=== PATIENT | male | born 1970 | race Two or more races ===

== ENCOUNTER 2024-05-31 13:41 | Outpatient (AMB) | payer OTHER, SELFPAY ==
--- NOTE | 2024-05-31 14:32 | A.OFFVIS_ITS ---
Intake Visit Reasons: bilateral nephrolithiasis Intake Note: New Patient presents for initial visit for bilateral nephrolithiasis Urology Medications: none Blood Thinner: none Steam Trap Worker Required: No Accompanied by: Self / Same As Patient Allergies No Known Allergies Allergy (Verified 05/31/24 15:02) Medication List - Last Reconciled 05/31/24 by DAYANARA Chatterjee-FELICITAS amlodipine 10 mg PO DAILY buprenorphine-naloxone 8-2 mg (Suboxone) 1 film sublingual BID clonazepam 1 mg PO BID PRN divalproex 500 mg PO BID haloperidol 10 mg PO BEDTIME prazosin 5 mg PO BEDTIME HPI Comments Details: Amari is a 54-year-old male patient of Dr. Starks. He has a past medical history of nicotine dependence, PTSD, opioid dependence, obesity, nephrolithiasis, literally see problem, hypertension, hep C, depression, anxiety, and auditory hallucinations. He presents to the office today as a new patient for nephrolithiasis. In discussion with the patient today he reports previously following up with [facility] many years ago for his longstanding history of nephrolithiasis and has underwent lithotripsy x1 in the past. He reports having followed up with his PCP at which time a CT was ordered 03/22 reviewed records that no bilateral kidneys with no hydronephrosis. There is multifocal scarring of the left kidney partially in the upper pole and interpolar region. 3 cm cyst in the interpolar region of the left kidney. There are bilateral nonobstructing renal calculi. On the right there is a cluster of 4 calculi in the lower pole the largest measuring 3 mm on the left there is a 9 mm calculus in the lower pole with a few punctate calculi in the upper pole and a 2 mm calculus in the lower pole. No calculus along the course of either ureter. Mild bladder wall thickening. When asked he does continue to report bilateral flank pain left side greater than right. We discussed potential causes of nephrolithiasis as well as further interventions. He otherwise denies urinary urgency, urinary frequency, incontinence, nocturia, hematuria, dysuria, foul smelling urine, changes to urinary stream, flank pain, fever, and or chills. He is happy with his current voiding parameters. [facility] Medical History (Updated 05/31/24 @ 15:14 by ARTHUR Chatterjee) Tobacco use disorder PTSD (post-traumatic stress disorder) Opioid dependence Obesity Nephrolithiasis Literacy problem Hypertension Hepatitis C Depression with anxiety Auditory hallucinations Review of Systems Const All systems reviewed & are unremarkable except as noted in HPI and below Physical Exam Const General: cooperative, comfortable, no acute distress, well developed, alert and awake Orientation/consciousness: patient oriented x3 Limitations: no limitations HEENT Head: Yes normal to inspection, Yes normocephalic and Yes atraumatic Ears: hearing grossly normal bilaterally Eyes General: appearance normal, both eyes and all related structures Neck Neck: Yes normal visual inspection and Yes trachea midline Chest Chest palpation & inspection: normal inspection of the chest Resp Effort & Inspection: normal respiratory effort and able to speak in complete sentences Cardio Rate: regular rate GI Inspection: Yes normal to inspection General: Yes no CVA tenderness Back/Spine/Pelvis Back: no CVA tenderness Skin General skin exam: no rashes or lesions noted Neuro General: patient oriented x3 Extrem General: Yes normal to inspection Psych Appearance: grossly normal and well kempt Mental Status: mental status grossly normal Speech and movement: Normal speech and movement present and Clear speech present Affect: normal affect Attitude: cooperative Thought process: Normal thought process present Thought content: Normal thought content present Insight: Fair insight present (Psych) Judgement: Fair judgement present (Psych) Results AMB Urinalysis, Automated UA Leukoctes 125 Grace/uL Last Edit by Pete Johnson on 05/31/24 14:54 UA Nitrite Last Edit by Pete Johnson on 05/31/24 14:54 UA Urobilinogen 0.2 mg/dL Last Edit by Pete Johnson on 05/31/24 14:54 UA Protein 15 mg/dL Last Edit by Pete Johnson on 05/31/24 14:54 UA pH 6.0 Last Edit by Pete Johnson on 05/31/24 14:54 UA Blood 80 Herbert/uL Last Edit by Ptee Johnson on 05/31/24 14:54 UA Specific [place] 1.020 Last Edit by Pete Johnson on 05/31/24 14:54 UA Ketone Last Edit by Pete Johnson on 05/31/24 14:54 UA Bilirubin 0 mg/dL Last Edit by Pete Johnson on 05/31/24 14:54 UA Glucose 0 mg/dL Last Edit by Pete Lovedipesh on 05/31/24 14:54 Results Reviewed Results Reviewed: Laboratory Last Values Urine pH (Auto) 6.0 05/31/24 14:52 Specific [place] (Auto) 1.020 05/31/24 14:52 Urine Protein (Auto) 15 mg/dL 05/31/24 14:52 Glucose (UA)(Auto) 0 mg/dL 05/31/24 14:52 Urine Blood (Auto) 80 Herbert/uL 05/31/24 14:52 Urine Bilirubin (Auto) 0 mg/dL 05/31/24 14:52 Urine Urobilinogen (Auto) 0.2 mg/dL 05/31/24 14:52 Leukocyte Esterase (Auto) 125 Grace/uL 05/31/24 14:52 Assessment & Plan Assessment & Plan (1) Nephrolithiasis: Code(s): N20.0 - Calculus of kidney Category: Medical (2) Flank pain: Code(s): R10.9 - Unspecified abdominal pain Category: Medical Plan In office urinalysis results reviewed with the patient today; as noted above. Recent CT results were reviewed with the patient today; as noted above. We discussed further treatment options to include ureteroscopy verses ESWL. Will obtain KUB for further assessment evaluation. Patient currently denies any bothersome urinary issues. He reports be happy with current voiding parameters. Follow-up in 1-2 weeks with imaging to be completed prior; or sooner with any issues, concerns, and or questions. Orders: Orders AMB Urinalysis Automated Today Z13.9 - Encounter for screening, unspecified XR KUB Today N20.0 - Calculus of kidney Patient Instructions: The patient had an opportunity to ask questions regarding the treatment plan. All questions were answered. Physical exam, labs, and imaging were discussed and reviewed in detail. As well as risks, benefits, and discussion of treatment choices. No major barriers to understanding were identified. The patient expressed understanding and agreement with the above treatment plan. The patient was made aware they should contact our office by phone for worsening of their current condition, the appearance of new symptoms, or with any questions or concerns. Compliance is encouraged with any medications and follow up testing that is ordered. It is a privilege to be allowed the opportunity to participate in? your urological care.? Again, if you have any questions or concerns If you have any questions or concerns please do not hesitate to contact me. The office is [phone]. This note is constructed using voice recognition software. While every effort has been made to ensure accuracy crossing supervisor errors may have been included. Yours sincerely, GUNNER Chatterjee Coding Level of Care Code New Pt Level 3 (59551) Diagnoses Nephrolithiasis N20.0 Flank pain R10.9
== END 2024-05-31 15:03 | disposition home or self-care (01) ==
PROVIDERS: PCP Internal Medicine; Visit Provider Nurse Practitioner Family
DX: N20.0 Calculus of kidney (principal); R10.9 Unspecified abdominal pain; Z13.9 Encounter for screening, unspecified
CPT/HCPCS: 99203

== ENCOUNTER 2024-05-31 13:41 | Outpatient (REF) | payer OTHER, SELFPAY ==
--- NOTE | ~2024-05-31 | XR_ITS ---
CLINICAL HISTORY: N20.0 - Calculus of kidney Single view of the abdomen. COMPARISON: None FINDINGS: Cholecystectomy clips. Three calcifications overlie the inferior pole of the right renal shadow measuring 3 mm, 3 mm and 2 mm likely representing renal calculi. Majority of the right kidney is obscured by overlying bowel. Calcification overlying the midportion of the left kidney shadow measuring 6 mm. Normal bowel distention. No pneumoperitoneum identified. [id number] colonic stool burden most pronounced within the ascending colon. No fracture identified. Visualized portions of the lung bases were unremarkable. IMPRESSION: 1. Probable right renal calculi measuring 3 mm, 3 mm and 2 mm at the inferior pole of the right kidney. Recommend correlation with prior imaging if available. 2. Probable 6 mm left renal calculus in the midportion. 3. Nonobstructive bowel gas pattern. This document has been electronically signed by: Fermin Duffy MD on 05/31/2024 16:33:21
== END 2024-05-31 13:42 | disposition home or self-care (01) ==
LOC: HO.XRAY 13:41
PROVIDERS: PCP Internal Medicine; Visit Provider Nurse Practitioner Family
DX: N20.0 Calculus of kidney (principal); R10.9 Unspecified abdominal pain
CPT/HCPCS: 74018; 81003; 99202

== ENCOUNTER 2024-06-04 09:32 | Outpatient (AMB) | payer OTHER, SELFPAY ==
--- NOTE | 2024-06-04 09:36 | A.OFFVIS_ITS ---
Intake Visit Reasons: Followup KUB Intake Note: Patient presents today for follow up on bilateral nephrolithiasis and KUB X-ray results Imaging completed: 05/31/24 Urology Medications: none Blood Thinner: none Leasing Associate Required: No Accompanied by: Self / Same As Patient Allergies No Known Allergies Allergy (Verified 06/04/24 12:03) Medication List - Last Reconciled 06/04/24 by GUNNER Chatterjee amlodipine 10 mg PO DAILY buprenorphine-naloxone 8-2 mg (Suboxone) 1 film sublingual BID clonazepam 1 mg PO BID PRN divalproex 500 mg PO BID haloperidol 10 mg PO BEDTIME prazosin 5 mg PO BEDTIME HPI Comments Details: Amari is a 54-year-old male patient of Dr. Starks. He has a past medical history of nicotine dependence, PTSD, opioid dependence, obesity, nephrolithiasis, literally see problem, hypertension, hep C, depression, anxiety, and auditory hallucinations. He presents to the office today for follow-up of his nephrolithiasis. Of note, patient was seen last week as a new patient for nephrolithiasis at which time a KUB was ordered for further assessment evaluation. These results were reviewed with the patient today. KUB 06/23 Probable right renal calculi measuring 3 mm, 3 mm, and 2 mm at the inferior pole of the right kidney. 6 mm left renal calculus in the midportion. He continues to report ongoing bilateral flank pain left side greater than right. He does have a previous history of nephrolithiasis and has underwent previous surgical intervention with lithotripsy in the past. Previous CT 03/22 notes bilateral kidneys with no hydronephrosis. There is multifocal scarring of the left kidney partially in the upper pole and interpolar region. 3 cm cyst in the interpolar region of the left kidney. There are bilateral nonobstructing renal calculi. On the right there is a cluster of 4 calculi in the lower pole the largest measuring 3 mm on the left there is a 9 mm calculus in the lower pole with a few punctate calculi in the upper pole and a 2 mm calculus in the lower pole. No calculus along the course of either ureter. Mild bladder wall thickening. We discussed potential causes of nephrolithiasis as well as further interventions. He otherwise denies urinary urgency, urinary frequency, incontinence, nocturia, hematuria, dysuria, foul smelling urine, changes to urinary stream, fever, and or chills. In office urinalysis results reviewed with the patient today 3+ leukocytes and 2+ microscopic blood. When asked he reports be happy with current voiding parameters. He otherwise offers no other issues or concerns at this time. [facility] Medical History Tobacco use disorder PTSD (post-traumatic stress disorder) Opioid dependence Obesity Nephrolithiasis Literacy problem Hypertension Hepatitis C Depression with anxiety Auditory hallucinations Review of Systems Const All systems reviewed & are unremarkable except as noted in HPI and below Physical Exam Const General: cooperative, healthy appearing, comfortable, no acute distress, well developed, alert and awake Orientation/consciousness: patient oriented x3 Limitations: no limitations HEENT Head: Yes normal to inspection, Yes normocephalic and Yes atraumatic Ears: hearing grossly normal bilaterally Eyes General: appearance normal, both eyes and all related structures Neck Neck: Yes normal visual inspection and Yes trachea midline Chest Chest palpation & inspection: normal inspection of the chest Resp Effort & Inspection: normal respiratory effort and able to speak in complete sentences Cardio Rate: regular rate GI Inspection: Yes normal to inspection General: Yes no CVA tenderness Back/Spine/Pelvis Back: no CVA tenderness Skin General skin exam: no rashes or lesions noted Neuro General: patient oriented x3 Extrem General: Yes normal to inspection Psych Appearance: grossly normal and well kempt Mental Status: mental status grossly normal Speech and movement: Normal speech and movement present and Clear speech present Affect: normal affect Attitude: cooperative Thought process: Normal thought process present Thought content: Normal thought content present Insight: Fair insight present (Psych) Judgement: Fair judgement present (Psych) Results AMB Urinalysis, Automated UA Leukoctes 500 Grace/uL Last Edit by Pete Johnson on 06/04/24 11:07 UA Nitrite Last Edit by Pete Johnson on 06/04/24 11:07 UA Urobilinogen 0.2 mg/dL Last Edit by Pete Johnson on 06/04/24 11:07 UA Protein 15 mg/dL Last Edit by Pete Johnson on 06/04/24 11:07 UA pH 6.0 Last Edit by Pete Johnson on 06/04/24 11:07 UA Blood 80 Herbert/uL Last Edit by Pete Johnson on 06/04/24 11:07 UA Specific [place] 1.015 Last Edit by Pete Johnson on 06/04/24 11:07 UA Ketone Last Edit by Pete Johnson on 06/04/24 11:07 UA Bilirubin 0 mg/dL Last Edit by Pete Johnson on 06/04/24 11:07 UA Glucose 0 mg/dL Last Edit by Pete Johnson on 06/04/24 11:07 Results Reviewed Results Reviewed: Laboratory Last Values Urine pH (Auto) 6.0 06/04/24 11:06 Specific [place] (Auto) 1.015 06/04/24 11:06 Urine Protein (Auto) 15 mg/dL 06/04/24 11:06 Glucose (UA)(Auto) 0 mg/dL 06/04/24 11:06 Urine Blood (Auto) 80 Herbert/uL 06/04/24 11:06 Urine Bilirubin (Auto) 0 mg/dL 06/04/24 11:06 Urine Urobilinogen (Auto) 0.2 mg/dL 06/04/24 11:06 Leukocyte Esterase (Auto) 500 Grace/uL 06/04/24 11:06 Date of Service: 05/31/24 Procedure(s): XR KUB FINDINGS: Cholecystectomy clips. Three calcifications overlie the inferior pole of the right renal shadow measuring 3 mm, 3 mm and 2 mm likely representing renal calculi. Majority of the right kidney is obscured by overlying bowel. Calcification overlying the midportion of the left kidney shadow measuring 6 mm. Normal bowel distention. No pneumoperitoneum identified. Tuhc-gn-[id number] colonic stool burden most pronounced within the ascending colon. No fracture identified. Visualized portions of the lung bases were unremarkable. IMPRESSION: 1. Probable right renal calculi measuring 3 mm, 3 mm and 2 mm at the inferior pole of the right kidney. Recommend correlation with prior imaging if available. 2. Probable 6 mm left renal calculus in the midportion. 3. Nonobstructive bowel gas pattern. Assessment & Plan Assessment & Plan (1) Flank pain: Code(s): R10.9 - Unspecified abdominal pain Category: Medical (2) Nephrolithiasis: Code(s): N20.0 - Calculus of kidney Category: Medical Plan: Plan Extracorporeal Shock Wave Lithotripsy We discussed the nature of the decision and reasonable alternatives for performing the above surgery. Interventions include chemical dissolution, ESWL, ureteroscopy with laser lithotripsy and stent placement, PCNL. ? Options such as medical therapy were discussed. The relative uncertainties and benefits related to each alternate procedure were adequately discussed. General surgical risks including, but not limited to, pain, bleeding, infection, myocardial infarction, pulmonary embolus, deep vein thrombosis and cerebrovascular accident which may result in further hospitalization were discussed.? Full disclosure of the procedure as well as all major risks, benefits and complications were discussed including but not limited to risks of bleeding, injury to the kidney with hematoma or danielle-hematoma, failure to fragments stone, potential for ureteric obstruction from stone passage and need for secondary procedures.? There is a small long-term risk of hypertension and a question violeta of diabetes.? Success rate of fragmentation and passage is approximately 70- 75%.? This is compared to the risks and benefits for ureteroscopy which has a higher success rate but is a more invasive procedure. The success rate of the procedure was discussed. Success of the procedure in the short-term does not necessarily guarantee that long-term success will be maintained. Suitable follow up will need to be maintained. The patient showed understanding of the discussion as well as the typical recovery time, and the outpatient nature of this procedure. Opportunity was given for questions. Repeat-back protocol used to confirm understanding. They wish to proceed with Left ESWL Plan In office urinalysis results reviewed with the patient today; will send for urine culture. Recent KUB results reviewed with the patient today; as noted above. We discussed at length further intervention to include ureteroscopy verses ESWL verses surveillance monitoring; risks and benefits of these interventions were discussed. All questions were answered. We discussed potential causes of nephrolithiasis as well as near future metabolic workup. Discussed, educated, and stressed the importance of adequate hydration relation to nephrolithiasis as well as overall health and well-being. Patient currently denies any bothersome urinary issues or concerns. He reports be happy with current voiding parameters. Schedule for left-sided ESWL as discussed. Follow-up per doctor's orders; or sooner with any issues, concerns, and or questions. Orders: Orders AMB Urinalysis Automated Today Z13.9 - Encounter for screening, unspecified Patient Instructions: The patient had an opportunity to ask questions regarding the treatment plan. All questions were answered. Physical exam, labs, and imaging were discussed and reviewed in detail. As well as risks, benefits, and discussion of treatment choices. No major barriers to understanding were identified. The patient expressed understanding and agreement with the above treatment plan. The patient was made aware they should contact our office by phone for worsening of their current condition, the appearance of new symptoms, or with any questions or concerns. Compliance is encouraged with any medications and follow up testing that is ordered. It is a privilege to be allowed the opportunity to participate in? your urological care.? Again, if you have any questions or concerns If you have any questions or concerns please do not hesitate to contact me. The office is [phone]. This note is constructed using voice recognition software. While every effort has been made to ensure accuracy gold letterer errors may have been included. Yours sincerely, GUNNER Chatterjee Coding Level of Care Code Est Pt Level 4 (03589) Diagnoses Flank pain R10.9 Nephrolithiasis N20.0
== END 2024-06-04 10:05 | disposition home or self-care (01) ==
PROVIDERS: PCP Internal Medicine; Visit Provider Nurse Practitioner Family
DX: R10.9 Unspecified abdominal pain (principal); N20.0 Calculus of kidney; Z13.9 Encounter for screening, unspecified
CPT/HCPCS: 99214

== ENCOUNTER → 2024-06-04 09:32 | Outpatient (BNVA) | payer OTHER, SELFPAY | PROVIDERS: PCP Internal Medicine; Visit Provider Nurse Practitioner Family | DX: R10.9 Unspecified abdominal pain (principal); N20.0 Calculus of kidney | CPT/HCPCS: 81003; 99212 ==

== ENCOUNTER 2024-07-18 07:12 | Day surgery (SDC) | payer OTHER, SELFPAY ==
[2024-07-13 10:28] VITALS: BMI 27.3
[2024-07-13 10:47] VITALS: BMI 27.3
--- NOTE | ~2024-07-18 | XR_ITS ---
CLINICAL HISTORY: left kidney stone 1 view abdomen Comparison: CR - XR KUB - 05/31/24 16:58 EST Findings: No pneumoperitoneum or pneumatosis. 7 mm calcification overlies the left kidney. Additional calcifications measuring up to 3 mm overlie the lower pole of the right kidney. Cholecystectomy clips. No suspicious pelvic calcification. No acute fractures. IMPRESSION: Bilateral renal stones. This document has been electronically signed by: Eloina Fitzpatrick MD on 07/18/2024 07:45:54
[2024-07-18 08:17] VITALS: BP 127/76; PULSE 53; RESP 15; TEMP 36.9; O2SAT 99
--- NOTE | 2024-07-18 08:31 | P.HPSUR_ITS ---
Pre-Procedural Eval Section A - 24 Hr Update-Section A only Date of Service: 07/18/24 The patient is an INPATIENT: No The patient has been examined within 24 hours of the surgical procedure. The History & Physical has been completed within 30 days and I have reviewed it.: No Section B - Complete if H&P > 30 days Chief Complaint: Calculus of kidney Details of Present Illness: 9mm left renal stone Relevant Social History: None Present Medications: see Short Stay Collaborative assessment Medical History: No relevant PMH History of Previous Operations: No relevant previous surgery Allergies: Allergies Allergy/AdvReac Type Severity Reaction Status Date / Time No Known Allergies Allergy Verified 07/18/24 08:11 Review of Systems Sugical H&P ROS: Negative: Constitution, Cardiovascular, Respiratory, Neurologi concepcion, Psychiatric, Hem-Onc, Allergic/Immunologic, Gastrointestinal, Genitourinary, Musculoskeletal, Integumentary, Endocrine and Eyes/Ears/Nose/Throat Exam Surgical H&P Exam: Normal: HEENT, Normal: Heart, Normal: Lungs, Normal: Extremities, Normal: Abdomen, Normal: Skin and Normal: Neurological Plan Diagnosis/Plan: Unchanged (left 9mm renal stone) I have reviewed the history and physical and performed a pertinent physical examination on my patient. No changes have occurred unless specified. Time Spent With Patient Time: Total time managing care of this patient today ____ minutes.
[2024-07-18] MEDS: Acetaminophen 1,000 MG/100 ML PIGGYBACK 400 MG IV (08:33)
[2024-07-18] MEDS: Lactated Ringers 1,000 ML 999 ML IV (08:33)
--- NOTE | 2024-07-18 09:05 | HO.ANESPROP2 ---
HPI - Anesthesia Eval Consult details Narrative: for left eswl PMFSH Active Problems Active Problems: All Active Problems Flank pain (Acute) Nephrolithiasis (Acute) Past Medical History Medical History (Updated 07/18/24 @ 08:35 by Grazyna Pascual RN) Bipolar 1 disorder Panic disorder Tobacco use disorder PTSD (post-traumatic stress disorder) Opioid dependence Obesity Nephrolithiasis Literacy problem Hypertension Hepatitis C Depression with anxiety Auditory hallucinations Family History Family history of problems with anesthesia: No Surgical History Surgical History Hx laparoscopic cholecystectomy Hx of lithotripsy Hx of myringotomy History of Problems with Anesthesia: No Social History Social History Patient Tobacco Use Status: Current everyday Tobacco user Tobacco use type: Cigarette Cigarettes Per Day: 3 Substance Use Type Other:: current marijuana use/prior opiates-taking suboxone Spiritual Healthcare Practices: none Pent[employer]al Healthcare Practices: Judaism Cultural Healthcare Practices: none Are you DNR?: No Advance Directives: No (friend is primary contact) Advance Directives Information Provided: Yes (as above noted) Advance Directives on File: No Recently lost weight without trying: No Eating poorly because of decreased appetite: No Nutrition Risks: No Nutritional Risk Meds Allergies Allergy/AdvReac Type Severity Reaction Status Date / Time No Known Allergies Allergy Verified 07/18/24 08:11 Active Medications: Current Medications Lactated Ringer's (Lr) 1,000 mls @ 50 mls/hr IVCONT .Q20H SHWETHA Home Medications ?Medication ?Instructions ?Recorded ?Confirmed ?Last Taken ?Type amlodipine 10 mg tablet 10 mg PO DAILY 05/16/24 07/13/24 Unknown History buprenorphine 8 mg-naloxone 2 mg 1 film sublingual BID 05/16/24 07/13/24 Unknown History sublingual film (Suboxone) clonazepam 1 mg tablet 1 mg PO BID PRN Anxiety 05/16/24 07/13/24 Unknown History divalproex 500 mg tablet,delayed 500 mg PO BID 05/16/24 07/13/24 Unknown History release haloperidol 10 mg tablet 10 mg PO BEDTIME 05/16/24 07/13/24 Unknown History aripiprazole 30 mg tablet 30 mg PO DAILY 07/18/24 07/18/24 Unknown History lisinopril 20 tab DAILY 07/18/24 07/18/24 Unknown History mg-hydrochlorothiazide 25 mg tablet Exam Height,Weight and Vital Signs: Height 5 ft 8.11 in Weight 81.81 kg Last Vital Signs Temp 98.5 F 07/18/24 08:17 Pulse 53 07/18/24 08:17 Resp 15 07/18/24 08:17 BP 127/76 07/18/24 08:17 Pulse Ox 99 07/18/24 08:17 O2 Del Method Room Air 07/18/24 08:17 Airway Mallampati Class: II TM Dist: >3cm Neck ROM: Full Loose/Missing/Broken Teeth: Yes and Upper Heart: ok Lungs: ok Assessment and Plan Assessment Anesthesia Assessment: Anesthesia Plan Discussed and Chart Reviewed Final Anesthetic Review Family History of Problems with Anesthesia: No History of Problems with Anesthesia: No NPO: Yes ASA Class: III Final Preanesthetic Review: No Changes in Pt Med Stat, Meds/Allgs Chart Reviewed, Consent Obtained/Reviewed and Anes Risks/Benef Reviewed Patient Risk: Intermediate Procedure Risk: Low Anesthetic Plan Anesthetic Plan: Agree w/ Assess. and Plan and TIVA Disposition: Standard PACU
--- NOTE | 2024-07-18 09:26 | W.PM.OPN ---
Operative Note Operative Note Date of Service: 07/18/24 Narrative: PreOperative Diagnosis: left Renal stones Post Operative Diagnosis: left Renal stones Procedure: left ESWL Surgeon: Dr Slick Villanueva Anesthesia: mac/sedation Indications for procedure: The patient understands ESWL may be a staged procedure and subsequent intervention may be required based on imaging after ESWL. Quoted stone clearance rates for a solitary procedure are in the 70-80% range based primarily on stone location. They also understand there is a risk of bleeding to the kidney, infection, damage to adjacent organs, and stone migration following the procedure. - Imaging left 7 mm stone Procedure optimization has been performed with IV acetaminophen given in the holding area and 1 L of lactated Ringer's to be given in order to optimize the fluid-stone interface. 20 mg of IV Lasix will be given in the last 5 minutes of the procedure to optimize stone clearance. Procedure: After informed consent was verified the patient was brought to the operating room and placed in a supine position. Anesthesia was performed per protocol. Safety pause time-out was performed. Imaging was displayed in the room and laterality confirmed. ESWL was performed. The 1st 500 shocks were performed at 60 hertz. These were performed with increasing power. Once maximum power was reached the rate was increased to 180 hertz. A total of 2500 shocks were given. Targeted imaging with ultrasound/fluoroscopy showed stone smudging suggestive of disintegration. The patient tolerated the procedure well and was transferred to the recovery area upon completion. Post procedure imaging will be organized. There was no evidence for flank discoloration.
--- NOTE | 2024-07-18 09:34 | P.OP_ITS ---
Operative Note Operative Note Date of Service: 07/18/24 Narrative: PreOperative Diagnosis: left Renal stones Post Operative Diagnosis: left Renal stones Procedure: left ESWL Surgeon: Dr Slick Villanueva Anesthesia: mac/sedation Indications for procedure: The patient understands ESWL may be a staged procedure and subsequent intervention may be required based on imaging after ESWL. Quoted stone clearance rates for a solitary procedure are in the 70-80% range based primarily on stone location. They also understand there is a risk of bleeding to the kidney, infection, damage to adjacent organs, and stone migration following the procedure. - Imaging 7mm left Procedure optimization has been performed with IV acetaminophen given in the holding area and 1 L of lactated Ringer's to be given in order to optimize the fluid-stone interface. 20 mg of IV Lasix will be given in the last 5 minutes of the procedure to optimize stone clearance. Procedure: After informed consent was verified the patient was brought to the operating room and placed in a supine position. Anesthesia was performed per protocol. Safety pause time-out was performed. Imaging was displayed in the room and laterality confirmed. ESWL was performed. The 1st 500 shocks were performed at 60 hertz. These were performed with increa sing power. Once maximum power was reached the rate was increased to 180 hertz. A total of 2500 shocks were given. Targeted imaging with ultrasound/fluoroscopy showed stone smudging suggestive of disintegration. The patient tolerated the procedure well and was transferred to the recovery area upon completion. Post procedure imaging will be organized. There was no evidence for flank discoloration.
[2024-07-18 09:54] VITALS: BP 123/82; PULSE 54; RESP 18; TEMP 36.3; O2SAT 98
[2024-07-18 09:59] VITALS: BP 133/83; PULSE 54; RESP 18; O2SAT 98
[2024-07-18 10:04] VITALS: BP 132/83; PULSE 52; RESP 20; O2SAT 98
[2024-07-18 10:09] VITALS: BP 129/85; PULSE 56; RESP 20; O2SAT 98
[2024-07-18] MEDS: Ketorolac Tromethamine 15 MG/ML VIAL IVPUSH (10:19)
[2024-07-18 10:24] VITALS: BP 120/80; PULSE 47; RESP 20; TEMP 36.3; O2SAT 98
== END 2024-07-18 10:51 | disposition home or self-care (01) ==
PROVIDERS: PCP Internal Medicine; Visit Provider Urology
PROC: (CPT 50590; principal; 2024-07-18 09:10)
DX: N20.0 Calculus of kidney (principal); Z87.442 Personal history of urinary calculi; R10.9 Unspecified abdominal pain; N28.1 Cyst of kidney, acquired; I10 Essential (primary) hypertension; B19.20 Unspecified viral hepatitis C without hepatic coma; F43.10 Post-traumatic stress disorder, unspecified; E66.9 Obesity, unspecified; F31.9 Bipolar disorder, unspecified; F41.9 Anxiety disorder, unspecified; R44.0 Auditory hallucinations; Z55.0 Illiteracy and low-level literacy; Z79.899 Other long term (current) drug therapy; F17.210 Nicotine dependence, cigarettes, uncomplicated; F11.20 Opioid dependence, uncomplicated; Z90.49 Acquired absence of other specified parts of digestive tract
CPT/HCPCS: 50590; 74018; J0131; J1885; J1940; J2003; J2250; J2704; J3010

== ENCOUNTER → 2024-07-18 07:12 | Outpatient (BNV) | payer OTHER, SELFPAY | PROVIDERS: PCP Internal Medicine; Visit Provider Urology | DX: N20.0 Calculus of kidney (principal) | CPT/HCPCS: 50590 ==

== ENCOUNTER → 2024-07-18 07:18 | Outpatient (BNV) | payer OTHER, SELFPAY | PROVIDERS: PCP Internal Medicine; Visit Provider Radiology Diagnostic Radiology | DX: N20.0 Calculus of kidney (principal) | CPT/HCPCS: 74018 ==

== ENCOUNTER 2024-08-07 13:58 | Outpatient (REF) | payer OTHER, SELFPAY ==
--- NOTE | ~2024-08-07 | US_ITS ---
EXAMINATION: US KIDNEY BILATERAL HISTORY: N20.0 - Calculus of kidney TECHNIQUE: Real-time grayscale ultrasound imaging of the kidneys was performed and images were reviewed. COMPARISON: There are no prior studies for comparison. FINDINGS: Right kidney: The right kidney measures 10.9 x 5.8 x 4.7 cm. Renal parenchymal echotexture and thickness are normal. There are no masses. There is a nonobstructing 5 x 3 x 6 mm calculus at the lower pole. There is no hydronephrosis. Left Kidney: The left kidney measures 9.2 x 4.9 x 2.8 cm. Renal parenchymal echotexture and thickness are normal. There is a 2.6 x 2.3 x 2.9 cm cyst in the mid to lower pole region. An additional 6 x 6 x 8 mm cyst is noted at the upper pole. There is no hydronephrosis or renal calculi. US/US renal BI IMPRESSION: 5 x 3 x 6 mm nonobstructing right renal calculus. Left renal cysts as described. Electronically signed by: Hernan Mccall MD 08/07/2024 03:51 PM EDT
--- OUTSIDE RECORDS SUMMARY | 2024-08-07 17:01 | XMS_ITS | Clinical Summary ---
Author Organization [facility] ity Address [address] [place] [address] Care Team Providers Care Television News Video Editor Name Role Phone Unavailable Primary Care Provider Unavailabl e Social History Tobacco Use Types Packs/Day Years Used Date Smoking Tobacco: Never Assessed Sex and Gender Information Value Date Recorded Sex Assigned at Not on file Legal Sex Male 11:14 PM EST Gender Identity Not on file Sexual Orientation Not on file Plan of Treatment Health Maintenance Due Date Last Done Comments DTaP,Tdap,and Td Vaccines (1 - Tdap) 1991 Hepatitis B Vaccines (1 of 3 - 19+ 3-dose series) 1991 Pneumococcal Vaccine: 50+ Ye ars (1 of 1 - PCV) 2022 Zoster Vaccines (1 of 2) 2022 Cholesterol Screening (Lipid Panel) 05/02/2022 Colorectal Cancer Screening: Colonoscopy 05/02/2022 Depression Screening 05/02/2022 HIV Screening 05/02/2022 Hepatitis C Screening 05/02/2022 Social Influencers of Health Screening 05/02/2022 COVID-19 Vaccine ( - 2023-2 5 season) 2024 Influenza Vaccine (#1) 2024 HIB Vaccines Aged Out No longer eligi ble based on patient's age to complete this topic HPV Vaccines Aged Out No longer eligi ble based on patient's age to complete this topic Hepatitis A Vaccines Aged Out No long er eligible based on patient's age to complete this topic IPV Vaccines Aged Out No longer eligi ble based on patient's age to complete this topic MMR Vaccines Aged Out No longer eligi ble based on patient's age to complete this topic Meningococcal ACWY Vaccine Aged Out N o longer eligible based on patient's age to complete this topic Meningococcal B Vacine Aged Out No lo nger eligible based on patient's age to complete this topic Pneumococcal Vaccine: Pediat rics (0 to 5 Years) and At-Risk Patients (6 to 64 Years) Aged Out No longer eligible b ased on patient's age to complete this topic RSV Immunization Patients Un bishop 20 months Aged Out No longer eligible b ased on patient's age to complete this topic Varicella Vaccines Aged Out No longer eligible based on patient's age to complete this topic
== END 2024-08-07 13:59 | disposition home or self-care (01) ==
LOC: HO.US 13:58
PROVIDERS: PCP Internal Medicine; Visit Provider Urology
DX: N20.0 Calculus of kidney (principal)
CPT/HCPCS: 76775

== ENCOUNTER → 2024-08-07 13:59 | Outpatient (BNV) | payer OTHER, SELFPAY | PROVIDERS: PCP Internal Medicine; Visit Provider Radiology Diagnostic Radiology | DX: N20.0 Calculus of kidney (principal); N28.1 Cyst of kidney, acquired | CPT/HCPCS: 76775 ==

== ENCOUNTER 2024-08-29 11:11 | Outpatient (AMB) | payer OTHER, SELFPAY ==
--- NOTE | 2024-08-29 11:31 | A.OFFVIS_ITS ---
Intake Visit Reasons: ESWL- follow up/US Intake Note: Patient is present for ESWL/US Urology Medication:TAMSULOSIN Antibiotic Allergy:NONE Blood Thinner:NONE Remote Encoding Operations Supervisor Required: No Allergies No Known Allergies Allergy (Verified 08/29/24 11:32) HPI Comments Details: Amari is a pleasant male. He is a patient of . He seen for the following urologic conditions - nephrolithiasis Follow-up from ESWL No stone seen on left side 2 small stones on right side Start allopurinol and vitamin B6 Encouraged 0.5 L fluid intake a day Lemon water Will also check testosterone in six-month given Suboxone use Nephrolithiasis Recurrent stone former Prior procedure at [facility] with ureteroscopy Imaging 03/22 - small cluster stones right side, 9 mm stone left side 08/21 - renal ultrasound small cyst left no stone, small stone right Intervention 07/24 ESWL left side [facility] Medical History (Updated 07/18/24 @ 08:35 by Grazyna Pascual, NELY) Bipolar 1 disorder Panic disorder Tobacco use disorder PTSD (post-traumatic stress disorder) Opioid dependence Obesity Nephrolithiasis Literacy problem Hypertension Hepatitis C Depression with anxiety Auditory hallucinations Surgical History Hx laparoscopic cholecystectomy Hx of lithotripsy Hx of myringotomy Social History Patient Tobacco Use Status: Current everyday Tobacco user Tobacco use type: Cigarette Cigarettes Per Day: 3 Review of Systems Const Denies chills and Denies fever(s) Card Reports no additional complaints and Denies syncope Resp Denies cough GI Denies abdominal pain and Denies heartburn Reports as per HPI and Denies change in libido Neuro Denies syncope Psych Denies change in libido Endo Denies change in libido Physical Exam Const General: cooperative, healthy appearing, comfortable and no acute distress Orientation/consciousness: patient oriented x3 HEENT Face and sinus: Yes normal facial exam Mouth: moist mucous membranes Neck Neck: Yes normal visual inspection, Yes full ROM and Yes trachea midline Chest Chest palpation & inspection: normal inspection of the chest Resp Effort & Inspection: normal respiratory effort, able to speak in complete sentences and no respiratory distress GI Inspection: Yes normal to inspection Back/Spine/Pelvis Cervical Spine: normal cervical lordosis Thoracic/Lumbar Spine: thoracic and lumbar spine normal to inspection Skin General skin exam: no rashes or lesions noted Neuro General: patient oriented x3, gait normal, tone normal and moves all extremities Extrem General: Yes normal to inspection and Yes capillary refill normal Assessment & Plan Assessment & Plan (1) Nephrolithiasis: Code(s): N20.0 - Calculus of kidney Category: Medical Plan Start allopurinol and vitamin B6 Encourage fluids Orders: Orders Calcium 6 Months N20.0 - Calculus of kidney Magnesium 6 Months N20.0 - Calculus of kidney Parathyroid Hormone Intact 6 Months N20.0 - Calculus of kidney Phosphorus 6 Months N20.0 - Calculus of kidney Vitamin D 25-OH Total 6 Months N20.0 - Calculus of kidney Testosterone, Free/Total 6 Months N20.0 - Calculus of kidney Basic Metabolic Panel 6 Months N20.0 - Calculus of kidney Uric Acid 6 Months N20.0 - Calculus of kidney Medications: New allopurinol 100 mg PO DAILY 90 days 90 tabs 1RF N20.0 - Calculus of kidney pyridoxine (vitamin B6) 50 mg PO DAILY 90 days 90 tabs 1RF N20.0 - Calculus of kidney Patient Instructions: This note is constructed using voice recognition software. While every effort has been made to ensure accuracy gem technician errors may have been included. Imaging studies, laboratory and physical exam results were discussed and reviewed in detail. No major barriers to patient understanding were identified. An opportunity to ask questions regarding the treatment plan was provided. All questions were answered. The patient expressed understanding and agreement with the above treatment plan. The patient is aware they should contact our office by phone for worsening of their current condition or the appearance of new urologic symptoms. Compliance is encouraged with any medications and followup testing that is ordered. It is a privilege to participate in the urologic care of your patient. If you have any questions or concerns regarding treatment for the above conditions, or other urologic issues, please do not hesitate to contact me. The office teleph one contact is [phone]. Sincerely, Dr Slick Villanueva MD, [facility] - Urology Compassionate Specialist Care for the Genitourinary System Coding Level of Care Code Est Pt Level 4 (28177) Diagnoses Nephrolithiasis N20.0
--- OUTSIDE RECORDS SUMMARY | 2024-08-29 13:36 | XMS_ITS | Clinical Summary ---
Author Organization [facility] Address [address] [place] [address] Care Team Providers Care Test Baker Name Role Phone Unavailable Primary Care Provider [...]
== END 2024-08-29 11:57 | disposition home or self-care (01) ==
LOC: HO.HUSH 11:12
PROVIDERS: PCP Internal Medicine; Visit Provider Urology
DX: N20.0 Calculus of kidney (principal)
CPT/HCPCS: 99024

== ENCOUNTER → 2024-08-29 11:11 | Outpatient (BNVA) | payer OTHER, SELFPAY | PROVIDERS: PCP Internal Medicine; Visit Provider Urology | DX: N20.0 Calculus of kidney (principal) | CPT/HCPCS: 99212 ==

== ENCOUNTER 2024-11-19 14:23 | Outpatient (REF) | payer OTHER, SELFPAY ==
--- NOTE | ~2024-11-19 | US_ITS ---
EXAMINATION: Ultrasound renal bilaterally. CLINICAL INFORMATION: Kidney stones. TECHNIQUE: Real-time ultrasound kidneys using grayscale technique. COMPARISON: August 07, 2024. FINDINGS: Right kidney: 10 x 6 x 6 cm. Normal echotexture. Normal renal cortical thickness. No hydronephrosis. 2 mm hyperechoic lesion at the lower pole. No gross solid or cystic lesion identified. Left kidney: 10 x 4 x 5 cm. Normal echotexture. Normal renal cortical thickness. No hydronephrosis. There is a 3.5 cm exophytic partially calcified lesion in the midportion with. No flow on color Doppler interrogation. There is a 0.9 cm anechoic lesion in the upper pole. There is a 0.5 cm hyperechoic lesion in the midportion. US/US renal BI IMPRESSION: No hydronephrosis. 3.5 cm complex partially calcified exophytic cyst, left kidney. Recommend dedicated CT versus MRI renal mass protocol. Bilateral nonobstructing nephrolithiasis. Electronically signed by: Humza Thurman MD 11/19/2024 02:51 PM EDT
--- OUTSIDE RECORDS SUMMARY | 2024-11-19 15:55 | XMS_ITS | Clinical Summary ---
Author Organization [facility] ity Address [address] [place] [address] Care Team Providers Care Music Intern Name Role Phone Unavailable Primary Care Provider [...] - 2023-2 5 season) 2024 Influenza Vaccine (Season Ended) 2025 HIB Vaccines Aged Out No longer eligi [...] age to complete this topic Meningococcal B Vaccine Aged Out No l onger eligible based on patient's age to complete [...]
== END 2024-11-19 14:24 | disposition home or self-care (01) ==
LOC: HO.HMGCX 14:23
PROVIDERS: PCP Internal Medicine; Visit Provider Urology
DX: N20.0 Calculus of kidney (principal); R10.9 Unspecified abdominal pain
CPT/HCPCS: 76775

== ENCOUNTER → 2024-11-19 14:27 | Outpatient (BNV) | payer OTHER, SELFPAY | PROVIDERS: PCP Internal Medicine; Visit Provider Radiology Diagnostic Radiology | DX: N28.1 Cyst of kidney, acquired (principal); N20.0 Calculus of kidney | CPT/HCPCS: 76775 ==

== ENCOUNTER 2025-02-12 09:18 | Outpatient (REF) | payer OTHER, SELFPAY ==
[2025-02-12 11:37] LABS: Parathyroid Hormone Intact 73.8 pg/mL (8.7-77.1)
[2025-02-12 11:37] LABS: Appearance Urine Cloudy; Glucose Urine UA Negative (Negative); PH 6.5 (5.0-9.0); Specific Gravity - Urine 1.020 (1.005-1.025); UMIC TRIGGER UA YES
[2025-02-12 11:48] LABS: Anion Gap 12 (12-20); Blood Urea Nitrogen 14 mg/dL (9-16); Calcium 9.1 mg/dL (8.4-10.2); Carbon Dioxide 25 mmol/L (22-29); Chloride 111 mmol/L (96-108); Estimated Glomerular Filt Rate > 60; Magnesium 1.9 mg/dL (1.6-2.6); Potassium 4.2 mmol/L (3.3-5.1); Sodium 144 mmol/L (135-145); Uric Acid 5.7 mg/dL (3.4-7.0)
[2025-02-18 21:38] LABS: Testosterone, Free 61.6 pg/mL (35.0-155.0)
== END 2025-02-12 09:19 | disposition home or self-care (01) ==
LOC: HO.LAB 09:18
PROVIDERS: PCP Internal Medicine; Visit Provider Urology
DX: N20.0 Calculus of kidney (principal); R10.9 Unspecified abdominal pain
CPT/HCPCS: 36415; 80048; 81001; 82306; 83735; 83970; 84100; 84402; 84403; 84550; 87086

== ENCOUNTER 2025-04-30 14:24 | Outpatient (AMB) | payer OTHER, SELFPAY ==
--- OUTSIDE RECORDS SUMMARY | 2025-04-27 23:59 | XMS_ITS | Continuity of Care Document ---
Author Organization [facility] Address [address] [place] [id number]- Care Team Providers Care Loss Prevention/Safety District Manager Name Role Phone Maxine Starks MD Primary Care Physician Encounter [facility] Date(s): 03/28/25 - 04/27/25 [facility]/[address] [address]- Encounter Type: Triage Allergies, Adverse Reactions, Alerts No Known Allergies Immunizations Given and Recorded Vaccine Date Status Refusal Reason zoster vaccine, inactivated 12/11/24 Given zoster vaccine, inactivated 10/09/24 Given influenza virus vaccine, inactivated 02/22/23 Give n influenza virus vaccine, inactivated 02/23/22 Give n influenza virus vaccine, inactivated 02/29/20 Give n influenza virus vaccine, inactivated 02/23/17 Give n influenza virus vaccine, inactivated 03/19/16 Give n influenza virus vaccine, inactivated 1 03/13/12 Gi alvaro influenza virus vaccine, inactivated 2 08/27/11 Gi alvaro influenza virus vaccine, inactivated 3 05/15/10 Gi alvaro pneumococcal 20-valent conjugate vaccine 02/23/22 Given tetanus/diphtheria/pertussis, acel(Tdap) 08/03/18 Given Influenza Virus Vaccine (oldterm) 4 03/08/08 Given Pneumococcal Poly (PPV23) (oldterm) 5 03/08/08 Giv en Tet/Diphth/Acel, Pertussis (oldterm) 6 03/08/08 Gi alvaro 1Admin Note: VIS 12-08 2Admin Note: VIS 12/22/2010 3Admin Note: VIS 01/06/10 4Admin Note: VIS 5Admin Note: VIS 6Admin Note: vis Medications ARIPiprazole 30 mg oral tablet 1 tablet = 30 mg, By Mouth, Daily, 0 Refills, Maintenance, 02/22/23 4:55:00 PM EDT, Partial fill upon patient request if the prescription is for a schedule II opioid drug. Start Date: 02/22/23 Status: Ordered Medication Dispense Status: Completed Total Allowed Fills: 1 Fills Dispensed: 0 buprenorphine-naloxone 8 mg-2 mg sublingual film 1.5 film, Sublingual, Daily, dissolve under the tongue DUE 04/30/2025 SERVICE TECH/WELDER verified, # 11 film, 0 Refills, Maintenance, 04/26/25 7:39:00 AM EST, [facility], 1.5 film Sublingual Daily,x7 days,Instr:dissolve under the tongue; DUE 04/30/2025; SERVICE TECH/WELDER verified, 173, cm, 10/29/24 15:53:00 EDT, Height, 78.6, kg, 10/29/24 15:53:00 EDT, Dry Weight Start Date: 04/26/25 Stop Date: 05/03/25 Status: Ordered Medication Dispense Status: Completed Quantity: 11.0 Unit: film Total Allowed Fills: 1 Fills Dispensed: 0 clonazePAM 1 mg oral tablet 1 tablet = 1 mg, By Mouth, 2 times a day, PRN Anxiety, 0 Refills, Maintenance, 12/02/22 3:00:00 PM EDT, Tablet, Partial fill upon patient request if the prescription is for a schedule II opioid drug. Start Date: 12/02/22 Status: Ordered Medication Dispense Status: Completed Total Allowed Fills: 1 Fills Dispensed: 0 divalproex sodium 500 mg oral enteric coated tablet 1 tablet = 500 mg, By Mouth, 2 times a day, # 90 tablet, 0 Refills, Maintenance, 12/02/22 3:01:00 PM EDT, EC Tablet, Partial fill upon patient request if the prescription is for a schedule II opioid drug. Start Date: 12/02/22 Status: Ordered Medication Dispense Status: Completed Quantity: 90.0 Unit: tablet Total Allowed Fills: 1 Fills Dispensed: 0 haloperidol 10 mg oral tablet Refills 0, Maintenance, 05/21/24 2:04:00 PM EST, Partial fill upon patient request if the prescription is for a schedule II opioid drug. Start Date: 05/21/24 Status: Ordered Medication Dispense Status: Completed Total Allowed Fills: 1 Fills Dispensed: 0 hydrochlorothiazide-lisinopril 25 mg-20 mg oral tablet 1 tablet, By Mouth, Daily, for 90 days, # 90 tablet, 3 Refills, Physician Stop 03/24/26 8:32:00 AM EDT, 03/29/25 8:32:00 AM EDT, [facility], 1 tablet By Mouth Daily,x90 days, 173,cm, 10/29/24 15:53:00 EDT, Height, 78.6, kg, 10/29/24 15:53:00 EDT, Dry Weight Start Date: 03/29/25 Stop Date: 03/24/26 Status: Ordered Medication Dispense Status: Completed Quantity: 90.0 Unit: tablet Total Allowed Fills: 4 Fills Dispensed: 0 hydrOXYzine pamoate 50 mg oral capsule TAKE 1 CAPSULE BY MOUTH AT BEDTIME FOR SLEEP Start Date: 04/01/22 Status: Ordered Medication Dispense Status: Completed Total Allowed Fills: 1 Fills Dispensed: 0 Narcan 4 mg/0.1 mL nasal spray = 4 mg, Nares, Both, Once, # 2 each, 11 Refills, Soft Stop, 08/31/22 5:14:00 PM EDT, [facility], Partial fill upon patient request if the prescription is for a schedule II opioid drug., 170.18, cm, 08/31/22 16:40:00 EDT, Height, 80.72, kg, 02/23/22 14:28:00 EDT, Dry Weight Start Date: 08/31/22 Status: Ordered Medication Dispense Status: Completed Quantity: 2.0 Unit: each Total Allowed Fills: 12 Fills Dispensed: 0 prazosin 2 mg oral capsule TAKE 1 CAPSULE BY MOUTH EVERYDAY AT BEDTIME Start Date: 04/01/22 Status: Ordered Medication Dispense Status: Completed Total Allowed Fills: 1 Fills Dispensed: 0 zoster vaccine, recombinant adjuvanted intramuscular injection = 0.5 mL, Intramuscular, Once, repeat dose in 2 to 6 months, # 1 each, 0 Refills, Soft Stop, 12/11/24 10:53:00 AM EDT, Powder, [facility], Partial fill upon patient request if the prescription is for a schedule II opioid drug., 0.5 mL Intramuscular Once,Instr:repeat dose in 2 to 6 months, 173, cm, 10/29/24 15:53:00 EDT, Height, 78.6, kg, 10/29/24 15:53:00 EDT, Dry Weight Start Date: 12/11/24 Status: Ordered Medication Dispense Status: Completed Quantity: 1.0 Unit: each Total Allowed Fills: 1 Fills Dispensed: 0 Problem List Condition Confirmation Course Effective Dates Status H ealth Status Informant Auditory hallucinations Confirmed Active Depression with anxiety Confirmed Active Hepatitis C, gt 1A, F3 fibrosure Confirmed Active HTN - Hypertension Confirmed Active Nephrolithiasis Confirmed Active Bilateral renal stones Confirmed Active Literacy problem Confirmed Active Obesity Confirmed Active Opioid dependence Confirmed Stable Active PTSD (post-traumatic stress disorder) Confirmed Active Tobacco use disorder Confirmed Active Social History Social History Type Response Tobacco Use: 4 or less cigar ettes(less than 1/4 pack)/day in last 30 days. Other: Pt only smokes 3 cig a day. Sexual Orientation Self described orien tation: ; Straight or heterosexual Sex Sex Representation Male (finding) Patient Care team information Care Team Personnel Name: Maxine Starks MD Position: [facility] Physician - Primary Care Member Role: PCP Address: [address] [place] [address] Telecom: Care Team Related Persons Name: TESS FRANK Name: ABHISHEK ZAMAN Name: ABHISHEK CHERRY Name: AXEL HUBBARD Insurance Providers Guarantor name: ZAKIYA MAHER [facility] Plan Information #: 1 Payer: [employer] [facility] [employer] Payer Identifier: [id number] Member Number: [id number] Group Number: [id number] Subscriber Identifier: NA Relationship to Subscriber: self Coverage Type: Medicaid (Managed Care) Coverage Verification Date: NA Telecom: NA Address: NA
--- NOTE | 2025-04-30 14:25 | MHC.OFFVIS ---
Intake Visit Reasons: follow up ( [facility] ONLY IF PT HAS URINARY Sx)SET Intake Note: Patient is present for ESWL(07/18/24) /US follow up Urology Medication:TAMSULOSIN,ALLOPURINOL, VITB-6 Antibiotic Allergy:NONE Blood Thinner:NONE Labs done 02/12/25 Total Testosterone 380, Fr Testosterone 61.6 Imaging: Renal Ultrasound 11/19/24 Operations Forester Required: No Accompanied by: Self / Same As Patient Allergies No Known Allergies Allergy (Verified 04/30/25 14:28) HPI Comments Details: Amari is a pleasant male. He is a patient of . He seen for the following urologic conditions - nephrolithiasis Telemedicine Evaluation 15 min Consultation [employer] Beth Video Six-month follow-up from stone management Therapy allopurinol and vitamin B6 Encouraged 0.5 L fluid intake a day Lemon water Baseline testosterone check 02/21 380 Does note weakness of stream with some degree of discomfort. Was improved when on tamsulosin. Ninety day prescription provided Follow-up six-month Nephrolithiasis Recurrent stone former Prior procedure at [facility] with ureteroscopy Imaging 03/22 - small cluster stones right side, 9 mm stone left side 08/21 - renal ultrasound small cyst left no stone, small stone right - 05/23 renal ultrasound small cyst left side, small right stable Intervention 07/24 ESWL left side PFSH Medical History (System 09/03/24 @ 15:14 by Nadeen Britton) Bipolar 1 disorder Panic disorder Tobacco use disorder PTSD (post-traumatic stress disorder) Opioid dependence Obesity Nephrolithiasis Literacy problem Hypertension Hepatitis C Depression with anxiety Auditory hallucinations Surgical History (System 09/03/24 @ 15:14 by Nadeen Britton) Hx laparoscopic cholecystectomy Hx of lithotripsy Hx of myringotomy Social History (System 09/03/24 @ 15:14 by Nadeen Britton) Patient Tobacco Use Status: Current everyday Tobacco user Tobacco use type: Cigarette Cigarettes Per Day: 3 Review of Systems Const All systems reviewed & are unremarkable except as noted in HPI and below Reports no additional complaints Resp Reports no additional complaints GI Reports no additional complaints Reports as per HPI Musc Reports no additional complaints Physical Exam Telemedicine evaluation Appropriate responses Regular breathing rate and rhythm HEENT Head: Yes normal to inspection Ears: hearing grossly normal bilaterally Eyes General: appearance normal, both eyes and all related structures Neck Neck: Yes normal visual inspection Chest Chest palpation & inspection: normal inspection of the chest Resp Effort & Inspection: normal respiratory effort and able to speak in complete sentences Telehealth Telehealth Telehealth Platform: [employer] Location of provider rendering services: practice address Location of patient: address on file Patient Identification confirmed using: Name, : Yes Telehealth method: video Patient verbally consented to treatment: Yes Patient verbally consented to billing insurance company: Yes Patient informed of any privacy concerns related to visit: Yes Assessment & Plan Assessment & Plan (1) Nephrolithiasis: Code(s): N20.0 - Calculus of kidney Category: Medical Plan Six-month follow-up Medications: Changed From tamsulosin 0.4 mg PO BEDTIME 14 days 14 caps 0RF To tamsulosin 0.4 mg PO BEDTIME 90 caps 1RF 90 days Refilled pyridoxine (vitamin B6) 50 mg PO DAILY 90 tabs 1RF 90 days N20.0 - Calculus of kidney Discontinued tamsulosin Discontinued Reason: Patient Completed Course 0.4 mg PO BEDTIME 14 days 14 caps 0RF Patient Instructions: This note is constructed using voice recognition software. While every effort has been made to ensure accuracy sanitation officer errors may have been included. Imaging studies, laboratory and physical exam results were discussed and reviewed in detail. No major barriers to patient understanding were identified. An opportunity to ask questions regarding the treatment plan was provided. All questions were answered. The patient expressed understanding and agreement with the above treatment plan. The patient is aware they should contact our office by phone for worsening of their current condition or the appearance of new urologic symptoms. Compliance is encouraged with any medications and followup testing that is ordered. It is a privilege to participate in the urologic care of your patient. If you have any questions or concerns regarding treatment for the above conditions, or other urologic issues, please do not hesitate to contact me. The office telephone contact is [phone]. Sincerely, Dr Slick Villanueva MD, [facility] - Urology Compassionate Specialist Care for the Genitourinary System Coding Level of Care Code Tele Est Pt Level 3 (08387) Complex visit Add On G2211 Diagnoses Nephrolithiasis N20.0
== END 2025-04-30 15:27 | disposition home or self-care (01) ==
LOC: HO.HUSH 14:24
PROVIDERS: PCP Internal Medicine; Visit Provider Urology
DX: N20.0 Calculus of kidney (principal)
CPT/HCPCS: 99213; G2211